=== PATIENT | male | born 1955 | race Caucasian/White ===

== ENCOUNTER 2023-03-30 01:03 | Emergency (ER) | payer MEDICARE ==
[~2023-03-30] VITALS: Ht 167.6 cm; Wt 86.0 kg
[2023-03-30 01:07] VITALS: BP 156/87; RESP 14; TEMP 98.9; O2SAT 98
[2023-03-30 01:10] VITALS: PULSE 110
[2023-03-30] MEDS ORDERED: DEXAMETHASONE 10 MG/ML VIAL PO ONE (05:45)
[2023-03-30] MEDS ORDERED: IBUP-2029 MT (07:09)
[2023-03-30] MEDS ORDERED: GUAI-450 MT (07:09)
[2023-03-30] MEDS ORDERED: BENZ1LOZ73 MT (07:10)
== END 2023-03-30 07:34 | disposition home or self-care (01) ==
LOC: ER 01:03
DX: J06.9 Acute upper respiratory infection, unspecified (principal); I49.9 Cardiac arrhythmia, unspecified
CPT/HCPCS: 99283; 71045; 93005; J1100